=== PATIENT | female | born 1960 ===

== ENCOUNTER 2019-01-14 14:15 | Observation (INO) | payer MEDICAID ==
[2019-01-14 14:17] VITALS: BMI 34.1
[2019-01-14] MEDS ORDERED: Albuterol-Ipratrop 3 mg / 0.5 (3 ml) UD INH STA (14:51)
[2019-01-14] MEDS ORDERED: Albuterol-Ipratrop 3 mg / 0.5 (3 ml) UD ONE ×2 (15:02→21:28)
--- NOTE | 2019-01-14 15:22 | RAD ---
Date of service: 01/14/2019 HISTORY: cough COMPARISON: No prior. TECHNIQUE: Chest PA and lateral FINDINGS: LUNGS: Right inferolateral pleural based like opacity is suggested. Clear left lung PLEURA: Right pleural effusion with or without thickening along with compressive atelectasis inferred. Concomitant underlying right pleural base pathology excluded. Question of a fluid level over the medial right lung base raised. CARDIOVASCULAR: There is presence of aortic atherosclerotic calcification on x-ray. Tortuosity of the thoracic aorta. Possible mild left ventricular enlargement. No significant appearing pulmonary venous congestion. OSSEOUS STRUCTURES: Thoracic spondylosis. Bilateral shoulder arthrosis. Left humeral head osseous hyperdensity-bone infarct and/or benign enchondroma here are favored considerations. Bilateral shoulder arthrosis VISUALIZED UPPER ABDOMEN: Normal. OTHER FINDINGS: None. IMPRESSION: Right inferolateral pleural effusion/thickening contiguous inferred right lateral lung base compressive atelectasis . Concomitant infiltrate here not excluded. Loculation possible. Additional findings as above. Consider elective follow-up CT chest with contrast enhancement to further evaluate.
--- NOTE | 2019-01-14 15:27 | ED PDOC ---
HPI: SOB/CHF/COPD Time Seen by Provider: 01/14/19 14:40 Chief Complaint (Nursing): Cough, Cold, Congestion Chief Complaint (Provider): Shortness of Breath History Per: Patient History/Exam Limitations: no limitations Onset/Duration Of Symptoms: Days (several) Current Symptoms Are (Timing): Still Present Current Respiratory Medications: Prednisone Severity: Moderate Associated Symptoms: Other (cough and congestion). denies: Fever Additional Complaint(s): 58 year old female with a history of asthma and HTN presents to the ED for evaluation of several days of worsening shortness of breath. Patient reports asthma at baseline and that her medications are not improving symptoms. She also complains of cough and congestion. Patient was using prednisone without relief. Denies fever and other complaints. PMD: Dr. John Damico Past Medical History Reviewed: Historical Data, Nursing Documentation, Vital Signs Vital Signs: Last Vital Signs Temp 98.5 F 01/14/19 14:18 Pulse 85 01/14/19 14:18 Resp 18 01/14/19 14:18 BP 122/75 01/14/19 14:18 Pulse Ox 99 01/14/19 14:18 KEMAL Report Viewed: Yes - Medical History PMH: Asthma, Diabetes, HTN - Surgical History Surgical History: Cholecystectomy - Family History Family History: States: Unknown Family Hx - Social History Current smoker - smoking cessation education provided: No - Immunization History Hx Tetanus Toxoid Vaccination: No Hx Influenza Vaccination: No Hx Pneumococcal Vaccination: Yes - Home Medications Home Medications: Ambulatory Orders Medication Instructions Recorded Albuterol HFA [Ventolin HFA 90 2 puff IH Q4 PRN 09/21/17 mcg/actuation (8 g)] Loratadine [Claritin] 10 mg PO HS 09/21/17 MetFORMIN [glucoPHAGE] 1,000 mg PO BID 09/21/17 Montelukast [Singulair] 10 mg PO HS 09/21/17 Saxagliptin HCl [Onglyza] 5 mg PO DAILY 09/21/17 Budesonide/Formoterol Fumarate 2 puff IH Q12 01/14/19 [Symbicort 80-4.5 Mcg Inhaler] Carvedilol [Coreg] 25 mg PO Q12 01/14/19 Fluticasone Nasal [Flonase] 2 spray MAGAN DAILY PRN 01/14/19 Losartan/Hydrochlorothiazide 1 tab PO DAILY 01/14/19 [Hyzaar 100-12.5 Tablet] Naproxen [Naprosyn] 500 mg PO Q12 PRN 01/14/19 Omeprazole 20 mg PO DAILY 01/14/19 Acetaminophen [Tylenol 325mg tab] 650 mg PO Q6 PRN tab 01/15/19 Albuterol/Ipratropium [Duoneb 3 3 ml INH RQ4 neb 01/15/19 mg/0.5 mg (3 ml) UD] Azithromycin [Zithromax] 500 mg PO DAILY #5 tab 01/15/19 guaiFENesin/Dextromethorphan 2 tab PO Q12 tab 01/15/19 [Mucinex-DM 600-30 mg] hydroCHLOROthiazide [Microzide] 12.5 mg PO DAILY cap 01/15/19 - Allergies Allergies/Adverse Reactions: Allergies Allergy/AdvReac Type Severity Reaction Status Date / Time No Known Allergies Allergy Verified 12/18/18 17:29 Review of Systems ROS Statement: Except As Marked, All Systems Reviewed And Found Negative Constitutional: Negative for: Fever, Chills ENT: Positive for: Nose Congestion Respiratory: Positive for: Cough, Shortness of Breath Physical Exam - Reviewed Nursing Documentation Reviewed: Yes Vital Signs Reviewed: Yes - Physical Exam Appears: Positive for: No Acute Distress Head Exam: Positive for: ATRAUMATIC, NORMAL INSPECTION, NORMOCEPHALIC Skin: Positive for: Normal Color, Warm, Dry. Negative for: Rash Eye Exam: Positive for: EOMI, Normal appearance, PERRL Neck: Positive for: Normal, Painless ROM, Supple Cardiovascular/Chest: Positive for: Regular Rate, Rhythm. Negative for: Murmur Respiratory: Positive for: Decreased Breath Sounds (decreased air entry bilaterally), Wheezing (bilateral wheeze) Gastrointestinal/Abdominal: Positive for: Normal Exam, Soft. Negative for: Tenderness Back: Positive for: Normal Inspection. Negative for: L CVA Tenderness, R CVA Tenderness Extremity: Positive for: Normal ROM (upper and lower extremities). Negative for: Deformity, Swelling Neurological/Psych: Positive for: Awake, Alert, Normal Tone, Oriented. Negative for: Motor/Sensory Deficits - Laboratory Results Result Diagrams: 01/15/19 05:55 01/14/19 17:28 - ECG O2 Sat by Pulse Oximetry: 99 (RA) Pulse Ox Interpretation: Normal Medical Decision Making Medical Decision Makin:51 MDM: workup for shortness of breath; asthma exacerbation or pneumonia Labs, CXR, Solumedrol and duonebs Reassess Chest x-ray FINDINGS: LUNGS: Right inferolateral pleural based like opacity is suggested. Clear left lung PLEURA: Right pleural effusion with or without thickening along with compressive atelectasis inferred. Concomitant underlying right pleural base pathology excluded. Question of a fluid level over the medial right lung base raised. CARDIOVASCULAR: There is presence of aortic atherosclerotic calcification on x-ray. Tortuosity of the thoracic aorta. Possible mild left ventricular enlargement. No significant appearing pulmonary venous congestion. OSSEOUS STRUCTURES: Thoracic spondylosis. Bilateral shoulder arthrosis. Left humeral head osseous hyperdensity-bone infarct and/or benign enchondroma here are favored considerations. Bilateral shoulder arthrosis VISUALIZED UPPER ABDOMEN: Normal. OTHER FINDINGS: None. IMPRESSION: Right inferolateral pleural effusion/thickening contiguous inferred right lateral lung base compressive atelectasis . Concomitant infiltrate here not excluded. Loculation possible. Additional findings as above. Consider elective follow-up CT chest with contrast enhancement to further evaluate. 16:57 Patient is negative for the flu. X-ray and lab results reveal patient has pneumonia. She will be admitted to observation for further treatment. Scribe Attestation: Documented by Catherine Mar, acting as a scribe for Radha Jackson MD Provider Scribe Attestation: All medical record entries made by the Scribe were at my direction and personally dictated by me. I have reviewed the chart and agree that the record accurately reflects my personal performance of the history, physical exam, medical decision making, and the department course for this patient. I have also personally directed, reviewed, and agree with the discharge instructions and disposition. Disposition - Clinical Impression Clinical Impression: Chest congestion, Chronic cough - Patient ED Disposition Is Patient to be Admitted: Yes - Disposition Disposition Time: 16:57 Condition: GUARDED
[2019-01-14 15:32] LABS: BASO # 0.2 K/uL (0.0-0.2); BASO % 1.2 % (0.0-2.0); EOS # 0.2 K/uL (0.0-0.7); EOS % 1.6 % (0.0-4.0); HEMOGLOBIN 10.8 g/dL (12.0-16.0); LYMPH # 2.7 K/uL (1.0-4.3); LYMPH % 17.3 % (20.0-40.0); MEAN CELL VOLUME 68.6 fl (81.0-99.0); MEAN CORPUSCULAR HEMOGLOBIN 20.8 pg (27.0-31.0); MEAN CORPUSCULAR HGB CONC 30.4 g/dL (33.0-37.0); MONO # 1.7 K/uL (0.0-0.8); MONO % 10.7 % (0.0-10.0); NEUT # 10.7 K/uL (1.8-7.0); NEUT % 69.2 % (50.0-75.0); RBC 5.19 Mil/uL (3.80-5.20); RED CELL DISTRIBUTION WIDTH 18.4 % (11.5-14.5); WHITE BLOOD COUNT 15.5 K/uL (4.8-10.8)
[2019-01-14] MEDS ORDERED: Azithromycin 500 MG in Sodium Chloride 0.9% 250 ML IVPB STA (17:00)
[2019-01-14] MEDS ORDERED: Azithromycin 500 MG IV IVPB ONE (17:42)
[2019-01-14] MEDS ORDERED: Naproxen 500 MG TAB PO PRN (18:00)
[2019-01-14 18:06] LABS: BLOOD UREA NITROGEN 8 mg/dl (7-17); CALCIUM 10.1 mg/dL (8.4-10.2); GFR NON-AFRICAN AMERICAN > 60
[2019-01-14] MEDS ORDERED: Sodium Chloride 3% for Inhalation 4 ML VIAL.NEB IH PRN (18:11)
[2019-01-14] MEDS ORDERED: Glucagon Recombinant 1 mg Inj IM PRN (18:43)
[2019-01-14] MEDS ORDERED: Dextrose 50% SYRINGE Inj (50 ml) IV PRN (18:43)
--- NOTE | 2019-01-14 18:48 | CP.PCM.HP ---
<Stephane Garbero - Last Filed: 01/14/19 20:24> History of Present Illness - History of Present Illness History of Present Illness: 58 y/o F with a PMHx of asthma, DM2 and HTN presented to ED complaining of SOB, productive cough and chest tightness that began 1 week ago and progressively agg ravated. Pt has been using her albuterol inhaler without relief. Pt also reports chills and chest pain that exacerbates with coughing. No recent travel. no ill contacts. Pt denies headache, dizziness, palpitations, rash, lower leg edema, N/D/D. --Pt was seen at ED at [facility] ~6 weeks ago due to asthma exacerbation, prednisone given. Pt felt well for ~4 weeks before current onset of symptoms. --Pt has Hx of Left pleura effusion in 2017, thoracentesis performed and 300 cc of clear yellow fluid were obtained. PMD: Dr Mookie CASH Meds as per EMR -PMHx: NIDDM, HTN, asthma, visual loss. -PSHx: Cholecystectomy, hysterectomy, breast reduction. -FHx: Father from [place] at age 80. Mother for umbilical hernia complications. Both parents had DM2 and HTN. -SHx: Pt quit smoking 20 years ago, pt used to smoke from 1/2 to 1 ppd for 15 years. No alcohol and no rec drugs. ED Course: --Vital signs WNL, O2 saturating 99% at RA. --CBC showed leukocytosis, BMP unremarkable and negative rapid flu test. --Duoneb, Solu-Medrol, ROcephin and Azithromycin were administered. --CXR: Right inferolateral pleural effusion/thickening contiguous inferred right lateral lung base compressive atelectasis. Concomitant infiltrate here not excluded. Loculation possible. Present on Admission - Present on Admission Any Indicators Present on Admission: No Review of Systems - Constitutional Constitutional: Chills. absent: Fever, Night Sweats, Weight Loss, Weakness - EENT Nose/Mouth/Throat: absent: Dysphagia, Mouth Lesions, Odynophagia, Sore Throat, Facial Pain, Neck Mass - Cardiovascular Cardiovascular: Chest Pain, Dyspnea. absent: Chest Pain at Rest, Leg Edema, Lightheadedness, Palpitations - Respiratory Respiratory: Cough, Dyspnea, Pain on Inspiration, Chest Congestion. absent: Hemoptysis - Gastrointestinal Gastrointestinal: absent: Abdominal Pain, Constipation, Diarrhea, Hematemesis, Nausea, Vomiting - Genitourinary Genitourinary: absent: Dysuria, Flank Pain, Hematuria, Urinary Frequency Past Patient History - Past Medical History & Family History Past Medical History?: Yes - Past Social History Smoking Status: Never Smoked - CARDIAC Hx Hypertension: Yes - PULMONARY Hx Asthma: Yes - NEUROLOGICAL HX Cerebrovascular Accident: Yes - HEENT Hx HEENT Problems: Yes Hx Blind: Yes Other/Comment: Legally blind - ENDOCRINE/METABOLIC Hx Endocrine Disorders: Yes Hx Diabetes Mellitus Type 2: Yes - HEMATOLOGICAL/ONCOLOGICAL Hx Blood Disorders: No - INTEGUMENTARY Hx Dermatological Problems: No - MUSCULOSKELETAL/RHEUMATOLOGICAL Hx Falls: No - GASTROINTESTINAL Hx Gastrointestinal Disorders: No - GENITOURINARY/GYNECOLOGICAL Hx Genitourinary Disorders: No - PSYCHIATRIC Hx Substance Use: No - SURGICAL HISTORY Hx Cholecystectomy: Yes - ANESTHESIA Hx Anesthesia: Yes Hx Anesthesia Reactions: No Meds Allergies/Adverse Reactions: Allergies Allergy/AdvReac Type Severity Reaction Status Date / Time No Known Allergies Allergy Verified 12/18/18 17:29 Physical Exam - Constitutional Appears: Well, No Acute Distress Additional comments: Pt was eating a sandwich while interview and medical Hx taking. - Head Exam Head Exam: ATRAUMATIC, NORMAL INSPECTION, NORMOCEPHALIC - Eye Exam Eye Exam: EOMI - ENT Exam ENT Exam: Mucous Membranes Moist - Neck Exam Neck exam: Positive for: Full Rom, Normal Inspection. Negative for: Lymphadenopathy, Meningismus - Respiratory Exam Respiratory Exam: Decreased Breath Sounds (RLL), Prolonged Expiratory Phase, Wheezes (mild on RLL). absent: Rales, Rhonchi, Respiratory Distress - Cardiovascular Exam Cardiovascular Exam: REGULAR RHYTHM, +S1, +S2 - GI/Abdominal Exam GI & Abdominal Exam: Soft. absent: Guarding, Rebound, Rigid, Tenderness - Extremities Exam Extremities exam: Positive for: full ROM, normal inspection, pedal pulses present. Negative for: calf tenderness, pedal edema, tenderness - Neurological Exam Neurological exam: Alert, Oriented x3 - Psychiatric Exam Psychiatric exam: Normal Affect, Normal Mood Results - Vital Signs Recent Vital Signs: Last Vital Signs Temp 98.5 F 01/14/19 14:18 Pulse 85 01/14/19 14:18 Resp 18 01/14/19 14:18 BP 122/75 01/14/19 14:18 Pulse Ox 99 01/14/19 18:16 - Labs Result Diagrams: 01/14/19 15:15 01/14/19 17:28 Labs: Laboratory Results - last 24 hr 01/14/19 01/14/19 01/14/19 15:15 15:15 15:15 WBC 15.5 H RBC 5.19 Hgb 10.8 L Hct 35.7 MCV 68.6 L MCH 20.8 L MCHC 30.4 L RDW 18.4 H Plt Count 461 H MPV 8.0 Neut % (Auto) 69.2 Lymph % (Auto) 17.3 L Major % (Auto) 10.7 H Eos % (Auto) 1.6 Baso % (Auto) 1.2 Neut # (Auto) 10.7 H Lymph # (Auto) 2.7 Major # (Auto) 1.7 H Eos # (Auto) 0.2 Baso # (Auto) 0.2 Sodium Potassium Chloride Carbon Dioxide Anion Gap BUN Creatinine Est GFR ( Amer) Est GFR (Non-Af Amer) Random Glucose Calcium NT-Pro-B Natriuret Pep 128 Influenza Typ A,B (EIA) Negative for flu a/b 01/14/19 17:28 WBC RBC Hgb Hct MCV MCH MCHC RDW Plt Count MPV Neut % (Auto) Lymph % (Auto) Major % (Auto) Eos % (Auto) Baso % (Auto) Neut # (Auto) Lymph # (Auto) Major # (Auto) Eos # (Auto) Baso # (Auto) Sodium 137 Potassium 3.9 Chloride 100 Carbon Dioxide 24 Anion Gap 17 BUN 8 Creatinine 0.6 L Est GFR ( Amer) > 60 Est GFR (Non-Af Amer) > 60 Random Glucose 201 H Calcium 10.1 NT-Pro-B Natriuret Pep Influenza Typ A,B (EIA) Assessment & Plan - Assessment and Plan (Free Text) Assessment: 58 y/o F with a PMHx of Asthma, L pleural effusion, DM2 and HTN was admitted for evaluation and management of dyspnea, community acquired pneumonia and R pleural effusion. --CXR: Right inferolateral pleural effusion/thickening contiguous inferred right lateral lung base compressive atelectasis. Concomitant infiltrate here not excluded. Loculation possible. PLAN: >Dyspnea/Community Acquired Pneumonia/R pleural effusion --Hx of asthma, tobacco 20 years ago and L pleural effusion. --Afebrile, VSS, leukocytosis, O2 saturating well, Not in acute distress. --Considering CT chest if worsening of clinical presentation and better decription of RLL lesion. --Duonebs Q4H, Mucinex Q12H --IV Ceftriaxone and Azithromycin initiated --Pro-calcitonin, sputum culture, urine strep pneumo Ag, urine legionella Ag were ordered --Monitor vital signs >Athma, controlled --Chronic --Duonebs resumed --Home meds resumed >DM2 --Chronic --Home meds resumed --Insulinf sliding scale and hypoglycemia protocol >HTN --Chronic --Home meds resumed --Monitor vital signs. >DVT prophylaxis --SCD's --Lovenox 40mg SC daily Case discussed with Dr Florencio Garber PGY-2 - Date & Time Date: 01/14/19 Time: 18:10 <Alicia Matias - Last Filed: 01/22/19 15:42> Results - Vital Signs Recent Vital Signs: Last Vital Signs Temp 98.4 F 01/15/19 16:57 Pulse 66 01/15/19 16:57 Resp 20 01/15/19 16:57 BP 104/64 01/15/19 16:57 Pulse Ox 99 01/16/19 21:00 - Labs Result Diagrams: 01/15/19 05:55 01/14/19 17:28 Attending/Attestation - Attestation I have personally seen and examined this patient.: Yes I have fully participated in the care of the patient.: Yes I have reviewed all pertinent clinical information: Yes Notes (Text): 01/22/19 15:42 agree with findings and plan as above.
[2019-01-14] MEDS ORDERED: cefTRIAXone 2 GM in Sodium Chloride 0.9% 100 ML IVPB SCH (19:00)
[2019-01-14] MEDS ORDERED: cefTRIAXone 2 GM in Sodium Chloride 0.9% 100 ML IVPB STA (20:34)
[2019-01-14] MEDS: guaiFENesin-DM 600-30 mg ER Tab PO SCH (21:22)
[2019-01-14] MEDS: Albuterol-Ipratrop 3 mg / 0.5 (3 ml) UD INH SCH (21:27)
[2019-01-14] MEDS: Insulin Lispro (humaLOG) 100 Units/ml Inj SC SCH (23:21)
[2019-01-14] MEDS: Fluticasone-Salmeterol 100-50mcg Diskus IH SCH (23:22)
[2019-01-15] MEDS: Albuterol-Ipratrop 3 mg / 0.5 (3 ml) UD INH SCH ×5 (00:07→15:35)
[2019-01-15 06:33] LABS: HEMOGLOBIN 9.5 g/dL (12.0-16.0); MEAN CORPUSCULAR HEMOGLOBIN 20.9 pg (27.0-31.0); MEAN CORPUSCULAR HGB CONC 30.9 g/dL (33.0-37.0); RBC 4.56 Mil/uL (3.80-5.20); WHITE BLOOD COUNT 16.5 K/uL (4.8-10.8)
[2019-01-15 06:45] LABS: MEAN CELL VOLUME 67.5 fl (81.0-99.0)
[2019-01-15] MEDS: Fluticasone-Salmeterol 100-50mcg Diskus IH SCH (08:58)
[2019-01-15] MEDS ORDERED: cefTRIAXone 2 GM in Sodium Chloride 0.9% 100 ML IVPB SCH (09:00)
[2019-01-15] MEDS ORDERED: Enoxaparin 40 mg Syringe SC SCH (09:00)
[2019-01-15] MEDS ORDERED: Azithromycin 500 MG in Sodium Chloride 0.9% 250 ML IVPB SCH (09:00)
[2019-01-15] MEDS ORDERED: Pantoprazole 40 mg EC Tab PO SCH (09:00)
[2019-01-15] MEDS ORDERED: Pantoprazole 20 mg EC Tab PO SCH ×2 (09:00→09:15)
[2019-01-15] MEDS: guaiFENesin-DM 600-30 mg ER Tab PO SCH (09:03)
[2019-01-15] MEDS: Insulin Lispro (humaLOG) 100 Units/ml Inj SC SCH ×2 (09:04→15:23)
[2019-01-15 10:18] LABS: INR 1.1; PROTHROMBIN TIME 12.4 Seconds (9.8-13.1)
[2019-01-15] MEDS ORDERED: Lidocaine Hydrochloride 5 ML INJ ONE (12:29)
--- NOTE | 2019-01-15 12:38 | CT ---
Date of service: 01/15/2019 PROCEDURE: CT Chest without contrast HISTORY: left pleural effusion COMPARISON: January 14, 2019. Two-view chest. TECHNIQUE: Contiguous axial images were obtained through the chest without intravenous contrast enhancement. Sagittal and coronal reconstructions were performed. Radiation dose: Total exam DLP = 577.29 mGy-cm. This CT exam was performed using one or more of the following dose reduction techniques: Automated exposure control, adjustment of the mA and/or kV according to patient size, and/or use of iterative reconstruction technique. FINDINGS: LUNGS: Compressive atelectasis affecting the right lower lobe associated with the right pleural effusion. No suspicious pulmonary nodules or masses identified. MEDIASTINUM: Unremarkable thoracic aorta. No aneurysm. Normal sized heart. Main pulmonary artery unremarkable. No vascular congestion. Innumerable small less than 1 cm mediastinal lymph nodes primarily retrosternal. Although nonspecific the findings can be seen with prior infectious/inflammatory processes. Is a history of mediastinum 8 is or other intrathoracic inflammatory process? No aortic atherosclerotic calcification. PLEURA: Moderate size, uncomplicated right pleural effusion. No visible left pleural effusion. BONES: No fracture. No destructive lesion. UPPER ABDOMEN: Grossly unremarkable. OTHER FINDINGS: None. IMPRESSION: Uncomplicated moderate right pleural effusion. Right lower lobe compressive atelectasis. Innumerable small less than 1 cm primarily anterior mediastinal lymph nodes. No additional enlarged or suspicious lymph nodes detected.
--- NOTE | 2019-01-15 12:44 | PCM.SURG1 ---
Surgeon's Initial Post Op Note - Surgeon's Notes Surgeon: Jay Lopez MD Derivatives Trader: NONE Type of Anesthesia: Local Pre-Operative Diagnosis: Right pleural effusion, dyspnea Operative Findings: US showed a small right pleural effusion Post-Operative Diagnosis: Right pleural effusion, dyspnea Operation Performed: US guided right thoracentesis Specimen/Specimens Removed: 400 cc of yellow fluid Estimated Blood Loss: EBL {In ML}: 0 Blood Products Given: N/A Drains Used: No Drains Post-Op Condition: Fair Date of Surgery/Procedure: 01/15/19 Time of Surgery/Procedure: 12:35
[2019-01-15 13:28] LABS: BODY FLUID TYPE PLEURAL/THORACENTESI
[2019-01-15 13:39] LABS: GLUCOSE,BODY FLUID 213 mg/dL (NONE ESTABLISHED)
[2019-01-15 13:40] LABS: TOTAL PROTEIN,BODY FLUID 5.2 g/dL (NONE ESTABLISHED)
[2019-01-15 14:17] LABS: BF GROSS APPEARANCE SL CLOUDY (CLEAR)
[2019-01-15 14:18] LABS: BODY FLUID WBC 1817.2 /mm3 (0.0-300.0)
[2019-01-15 14:19] LABS: BODY FLUID RBC 985.6 /mm3 (0.0-0.0)
--- NOTE | 2019-01-15 15:22 | CP.PCM.DIS ---
<Fam Garcia - Last Filed: 01/15/19 15:58> Provider - Provider Date of Admission: 01/14/19 16:57 Attending physician: Alicia Matias DO Time Spent in preparation of Discharge (in minutes): 20 Diagnosis - Discharge Diagnosis (1) Pneumonia Status: Acute (2) Asthma Status: Chronic Hospital Course - Lab Results Lab Results: Most Recent Lab Values WBC 16.5 K/uL (4.8-10.8) H 01/15/19 05:55 RBC 4.56 Mil/uL (3.80-5.20) 01/15/19 05:55 Hgb 9.5 g/dL (12.0-16.0) L 01/15/19 05:55 Hct 30.8 % (34.0-47.0) L 01/15/19 05:55 MCV 67.5 fl (81.0-99.0) L 01/15/19 05:55 MCH 20.9 pg (27.0-31.0) L 01/15/19 05:55 MCHC 30.9 g/dL (33.0-37.0) L 01/15/19 05:55 RDW 19.0 % (11.5-14.5) H 01/15/19 05:55 Plt Count 421 K/uL (130-400) H 01/15/19 05:55 MPV 8.0 fl (7.2-11.7) 01/14/19 15:15 Neut % (Auto) 69.2 % (50.0-75.0) 01/14/19 15:15 Lymph % (Auto) 17.3 % (20.0-40.0) L 01/14/19 15:15 [place] % (Auto) 10.7 % (0.0-10.0) H 01/14/19 15:15 Eos % (Auto) 1.6 % (0.0-4.0) 01/14/19 15:15 Baso % (Auto) 1.2 % (0.0-2.0) 01/14/19 15:15 Neut # (Auto) 10.7 K/uL (1.8-7.0) H 01/14/19 15:15 Lymph # (Auto) 2.7 K/uL (1.0-4.3) 01/14/19 15:15 [place] # (Auto) 1.7 K/uL (0.0-0.8) H 01/14/19 15:15 Eos # (Auto) 0.2 K/uL (0.0-0.7) 01/14/19 15:15 Baso # (Auto) 0.2 K/uL (0.0-0.2) 01/14/19 15:15 PT 12.4 Seconds (9.8-13.1) 01/15/19 09:40 INR 1.1 01/15/19 09:40 Sodium 137 mmol/l (132-148) 01/14/19 17:28 Potassium 3.9 MMOL/L (3.6-5.0) 01/14/19 17:28 Chloride 100 mmol/L (98-107) 01/14/19 17:28 Carbon Dioxide 24 mmol/L (22-30) 01/14/19 17:28 Anion Gap 17 (10-20) 01/14/19 17:28 BUN 8 mg/dl (7-17) 01/14/19 17:28 Creatinine 0.6 mg/dl (0.7-1.2) L 01/14/19 17:28 Est GFR ( Amer) > 60 01/14/19 17:28 Est GFR (Non-Af Amer) > 60 01/14/19 17:28 POC Glucose (mg/dL) 180 mg/dL (65-110) H 01/15/19 13:01 Random Glucose 201 mg/dL (65-105) H 01/14/19 17:28 Calcium 10.1 mg/dL (8.4-10.2) 01/14/19 17:28 NT-Pro-B Natriuret Pep 128 pg/ml (0-900) 01/14/19 15:15 Procalcitonin 0.12 NG/ML (0.19-0.49) L 01/15/19 05:55 Fluid Source Pleural/thoracentesi 01/15/19 13:25 Fluid Appearance Sl cloudy (CLEAR) 01/15/19 13:25 Fluid WBC 1817.2 /mm3 (0.0-300.0) H 01/15/19 13:25 Fluid RBC 985.6 /mm3 (0.0-0.0) H 01/15/19 13:25 Fluid Glucose 213 mg/dL (NONE ESTABLISHED) 01/15/19 13:25 Fluid Total Protein 5.2 g/dL (NONE ESTABLISHED) 01/15/19 13:32 Fluid LDH 966 IU (NONE ESTABLISHED) 01/15/19 13:32 Fluid Comment Lt.yellow 01/15/19 13:25 Influenza Typ A,B (EIA) Negative for flu a/b (NEGATIVE) 01/14/19 15:15 Ur L.pneumophila Ag Negative (NEGATIVE) 01/15/19 04:15 S. pneumoniae Antigen Negative (NEGATIVE) 01/15/19 04:15 - Hospital Course Hospital Course: 58 yo female with PMHx of asthma, DM2 and HTn presented to ED with CC of SOB, productive cough and chest tightness. Patient admitted for evaluation and managment of dyspnea, community acquired pneumonia and R pleural effusion. ED course Vital signs WNL, O2 saturating 99% at room air CBC showed leukocytosis, BMP unremarkable and negative rapid flu test. Duoneb, Solu-Medrol, ROcephin and Azithromycin were administered. CXR: Right inferolateral pleural effusion/thickening contiguous inferred right lateral lung base compressive atelectasis. Concomitant infiltrate here not excluded. Loculation possible. In the Floor, IR was consulted, patient went for right thoracentesis guided, and 400cc of yellow fluid was withdrawn. Fluid analysis was sent to evaluate for empeyma. Patient Recieved IV ceftriaxone and azithromycin Patient seen and examined at bedside. No acute event overnight. Patient SOB improved, denies any chest pain, abd pain diarrhea or constipation. Patient Will be discharged home with Azithromycin abx. Will follow up with fluid analysis and contact patient when result are done Patient should follow up with PCP in 2-3 days. Patient is cleared to be discharged home ER precaution given. Discharge Exam - Head Exam Head Exam: ATRAUMATIC, NORMAL INSPECTION, NORMOCEPHALIC - Eye Exam Eye Exam: EOMI, Normal appearance, PERRL Pupil Exam: NORMAL ACCOMODATION, PERRL - Respiratory Exam Respiratory Exam: Rhonchi, NORMAL BREATHING PATTERN - Cardiovascular Exam Cardiovascular Exam: REGULAR RHYTHM, +S1, +S2 - GI/Abdominal Exam GI & Abdominal Exam: Normal Bowel Sounds, Unremarkable - Back Exam Back exam: NORMAL INSPECTION - Neurological Exam Neurological exam: Alert, Oriented x3 - Psychiatric Exam Psychiatric exam: Normal Affect, Normal Mood - Skin Skin Exam: Dry, Intact, Normal Color Discharge Plan - Discharge Medications Prescriptions: Azithromycin [Zithromax] 500 mg PO DAILY #5 tab - Follow Up Plan Condition: GOOD Disposition: HOME/ ROUTINE Instructions: Community-Acquired Pneumonia, Adult (DC) Additional Instructions: arelis con dr alex brown 28 a las 1pm. favor de llamar oficina para confirmar arelis. Referrals: John Damico MD [Family Provider] - <Benjy Reagan - Last Filed: 01/15/19 17:06> Provider - Provider Date of Admission: 01/14/19 16:57 Attending physician: Alicia Matias DO Hospital Course - Lab Results Lab Results: Micro Results 01/15/19 13:25 Body Fluid - Lung-Right Gram Stain - Final Most Recent Lab Values WBC 16.5 K/uL (4.8-10.8) H 01/15/19 05:55 RBC 4.56 Mil/uL (3.80-5.20) 01/15/19 05:55 Hgb 9.5 g/dL (12.0-16.0) L 01/15/19 05:55 Hct 30.8 % (34.0-47.0) L 01/15/19 05:55 MCV 67.5 fl (81.0-99.0) L 01/15/19 05:55 MCH 20.9 pg (27.0-31.0) L 01/15/19 05:55 MCHC 30.9 g/dL (33.0-37.0) L 01/15/19 05:55 RDW 19.0 % (11.5-14.5) H 01/15/19 05:55 Plt Count 421 K/uL (130-400) H 01/15/19 05:55 MPV 8.0 fl (7.2-11.7) 01/14/19 15:15 Neut % (Auto) 69.2 % (50.0-75.0) 01/14/19 15:15 Lymph % (Auto) 17.3 % (20.0-40.0) L 01/14/19 15:15 [place] % (Auto) 10.7 % (0.0-10.0) H 01/14/19 15:15 Eos % (Auto) 1.6 % (0.0-4.0) 01/14/19 15:15 Baso % (Auto) 1.2 % (0.0-2.0) 01/14/19 15:15 Neut # (Auto) 10.7 K/uL (1.8-7.0) H 01/14/19 15:15 Lymph # (Auto) 2.7 K/uL (1.0-4.3) 01/14/19 15:15 [place] # (Auto) 1.7 K/uL (0.0-0.8) H 01/14/19 15:15 Eos # (Auto) 0.2 K/uL (0.0-0.7) 01/14/19 15:15 Baso # (Auto) 0.2 K/uL (0.0-0.2) 01/14/19 15:15 PT 12.4 Seconds (9.8-13.1) 01/15/19 09:40 INR 1.1 01/15/19 09:40 Sodium 137 mmol/l (132-148) 01/14/19 17:28 Potassium 3.9 MMOL/L (3.6-5.0) 01/14/19 17:28 Chloride 100 mmol/L (98-107) 01/14/19 17:28 Carbon Dioxide 24 mmol/L (22-30) 01/14/19 17:28 Anion Gap 17 (10-20) 01/14/19 17:28 BUN 8 mg/dl (7-17) 01/14/19 17:28 Creatinine 0.6 mg/dl (0.7-1.2) L 01/14/19 17:28 Est GFR ( Amer) > 60 01/14/19 17:28 Est GFR (Non-Af Amer) > 60 01/14/19 17:28 POC Glucose (mg/dL) 236 mg/dL (65-110) H 01/15/19 15:41 Random Glucose 201 mg/dL (65-105) H 01/14/19 17:28 Calcium 10.1 mg/dL (8.4-10.2) 01/14/19 17:28 NT-Pro-B Natriuret Pep 128 pg/ml (0-900) 01/14/19 15:15 Procalcitonin 0.12 NG/ML (0.19-0.49) L 01/15/19 05:55 Fluid Source Pleural/thoracentesi 01/15/19 13:25 Fluid Appearance Sl cloudy (CLEAR) 01/15/19 13:25 Fluid WBC 1817.2 /mm3 (0.0-300.0) H 01/15/19 13:25 Fluid RBC 985.6 /mm3 (0.0-0.0) H 01/15/19 13:25 Fluid Tot Cell Count 100 (0-0) H 01/15/19 13:25 Fluid Neutrophils 17.0 % (0-0) H 01/15/19 13:25 Fluid Lymphocytes 62.0 % (0-0) H 01/15/19 13:25 Fld Monocyte/Macrophag 21 % (0-0) H 01/15/19 13:25 Fluid Glucose 213 mg/dL (NONE ESTABLISHED) 01/15/19 13:25 Fluid Total Protein 5.2 g/dL (NONE ESTABLISHED) 01/15/19 13:32 Fluid LDH 966 IU (NONE ESTABLISHED) 01/15/19 13:32 Fluid Comment Lt.yellow 01/15/19 13:25 Influenza Typ A,B (EIA) Negative for flu a/b (NEGATIVE) 01/14/19 15:15 Ur L.pneumophila Ag Negative (NEGATIVE) 01/15/19 04:15 S. pneumoniae Antigen Negative (NEGATIVE) 01/15/19 04:15 Attending/Attestation - Attestation I have personally seen and examined this patient.: Yes I have fully participated in the care of the patient.: Yes I have reviewed all pertinent clinical information, including history, physical exam and plan: Yes Notes (Text): 01/15/19 17:06 Patient seen and examined with resident. Case discussed and agreed with assessment. Patient discharged in stable condition.
[2019-01-15 15:45] LABS: BODY FLUID MONO/MACROPHAGE 21 % (0-0); BODY FLUID TOTAL COUNT 100 (0-0)
[2019-01-15 16:58] VITALS: BP 104/64; PULSE 66; RESP 20; TEMP 98.4
[2019-01-16 21:00] VITALS: O2SAT 99
--- NOTE | 2019-01-22 11:00 | CARD ---
APPROVED REPORT Date of service: 01/14/2019 EKG Measurement Heart [id number] <Conclusion> Normal sinus rhythm Left axis deviation Incomplete right bundle branch block Minimal voltage criteria for LVH, may be normal variant Abnormal ECG
--- NOTE | 2019-01-28 09:33 | US ---
PROCEDURE: Date of procedure: 01/15/2019 Procedure: 1. Ultrasound-guided Right thoracentesis, CPT 40862 Medications: 5cc 1% Lidocaine HISTORY: Right pleural effusion, shortness of breath TECHNIQUE: Following informed consent ,the Patients' right chest was marked. Procedure time-out was called, and the patient was placed in the sitting position and limited ultrasound showed a right effusion. The patient's right back was prepped and draped in the usual sterile fashion. After the skin was anesthetized with lidocaine, a drainage catheter was advanced under ultrasound guidance into the pleural space. Ultrasound-guided thoracentesis was performed. A total of 400 cubic centimeters of straw-colored fluid removed without complication. A Xeroform dressing was applied. IMPRESSION: Ultrasound guided Right thoracentesis. There were no immediate complications.
== END 2019-01-15 17:26 | disposition home or self-care (01) ==
LOC: H.ER 14:15 → H.ERHOLD 16:57 → H.MEDSURG1 22:12
PROVIDERS: ADMIT Student in an Organized Health Care Education/Training Program; ATTEND Student in an Organized Health Care Education/Training Program
DX: J18.9 Pneumonia, unspecified organism (principal); J44.0 Chronic obstructive pulmonary disease with (acute) lower respiratory infection; J45.901 Unspecified asthma with (acute) exacerbation; J90 Pleural effusion, not elsewhere classified; J98.11 Atelectasis; Z79.51 Long term (current) use of inhaled steroids; Z82.49 Family history of ischemic heart disease and other diseases of the circulatory system; Z83.3 Family history of diabetes mellitus; Z86.73 Personal history of transient ischemic attack (TIA), and cerebral infarction without residual deficits; Z87.891 Personal history of nicotine dependence; Z79.84 Long term (current) use of oral hypoglycemic drugs; Z79.899 Other long term (current) drug therapy; E11.9 Type 2 diabetes mellitus without complications; H54.8 Legal blindness, as defined in USA; I10 Essential (primary) hypertension
CPT/HCPCS: 32555; 36415; 71046; 71250; 80048; 82945; 82948; 83615; 83880; 83986; 84145; 85025; 85027; 85610; 87015; 87040; 87070; 87075; 87101; 87116; 87206; 87449; 87804; 88104; 88305; 89051; 93005; 94640; 96365; 96367; 96372; 96375; 99284; C1729; G0378; J0456; J0696; J1650; J2930; J7050